=== PATIENT | female | born 1955 | race Caucasian/White ===

== ENCOUNTER 2017-10-26 07:47 | Day surgery (SDC) | payer MEDICARE, MEDICAID ==
[~2017-10-26] VITALS: Ht 172.7 cm; Wt 86.6 kg
[2017-10-26] MEDS ORDERED: normal saline 1000ml 1,000 ML IV SCH (08:10)
[2017-10-26 09:10] VITALS: BP 151/87
[2017-10-26] MEDS ORDERED: FLUT100D2 INH (09:20)
[2017-10-26] MEDS ORDERED: CALC667T5 PO (09:28)
[2017-10-26] MEDS ORDERED: PANT-47 PO (09:30)
[2017-10-26] MEDS ORDERED: INSU100V5 IJ (09:31)
[2017-10-26] MEDS ORDERED: SEVE800T8 PO (09:33)
[2017-10-26] MEDS ORDERED: LORA10TA61 PO (09:34)
[2017-10-26 09:54] LABS: BASOPHILS % (AUTO) 0.2 % (0-1); EOSINOPHILS # (AUTO) 0.1 X10'3 (0-0.9); EOSINOPHILS % (AUTO) 1.1 % (0-6); HEMOGLOBIN 13.1 g/dl (12.0-16.0); LYMPHOCYTES # (AUTO) 1.5 X10'3 (1.1-4.8); MEAN CORPUSCULAR HEMOGLOBIN 30.8 PG (27.0-31.0); MEAN CORPUSCULAR HGB CONC 34.6 % (33.0-36.5); MEAN CORPUSCULAR VOLUME 88.9 FL (78-98); MEAN PLATELET VOLUME 9.2 FL (7.4-10.4); MONOCYTES # (AUTO) 0.4 X10'3 (0-0.9); MONOCYTES % (AUTO) 5.9 % (2-12); NEUTROPHILS # (AUTO) 4.5 X10'3 (1.8-7.7); NEUTROPHILS % (AUTO) 69.8 % (42-75); PLATELET COUNT 118 X10'3 (140-440); RED BLOOD COUNT 4.27 X10'6 (4.20-5.60); RED CELL DISTRIBUTION WIDTH 15.9 % (11.5-14.5); WHITE BLOOD COUNT 6.4 X10'3 (4.5-11.0)
[2017-10-26] MEDS ORDERED: fentaNYL/PF 50MCG/1 ML 2ML syringe IV PRN (10:00)
[2017-10-26] MEDS ORDERED: LIDOcaine 1%/PF 5ML 10 MG/ML VIAL SQ ONE (10:00)
[2017-10-26] MEDS ORDERED: heparin 1,000 units/ml 10ml inj ICATH ONE (10:00)
[2017-10-26] MEDS ORDERED: midazolam 2 mg/2 ml injection IV PRN (10:00)
[2017-10-26 10:04] LABS: INR 0.9 INR; PROTHROMBIN TIME 9.8 SECONDS (9.0-12.0)
[2017-10-26] MEDS ORDERED: LIDOcaine 1%/PF 5ML 10 MG/ML VIAL ONE (10:22)
[2017-10-26] MEDS ORDERED: heparin 1,000unit/ml 10ml vial 10 ML ONE (10:22)
[2017-10-26 10:46] VITALS: BP 152/88
[2017-10-26 11:00] VITALS: BP 154/89
[2017-10-27] MEDS ORDERED: pneumococcal 23-VAL P-sac vacc 25 mcg/0.5ml vial IMVAC ONE (10:00)
== END 2017-10-26 11:15 | disposition home or self-care (01) ==
LOC: SSTAY O 07:47
PROVIDERS: ATTEND Radiology Vascular & Interventional Radiology
DX: T82.898A Other specified complication of vascular prosthetic devices, implants and grafts, initial encounter (principal); Y83.8 Other surgical procedures as the cause of abnormal reaction of the patient, or of later complication, without mention of misadventure at the time of the procedure; Y92.89 Other specified places as the place of occurrence of the external cause; N18.9 Chronic kidney disease, unspecified; R79.1 Abnormal coagulation profile; Z23 Encounter for immunization; Z88.6 Allergy status to analgesic agent; Z88.5 Allergy status to narcotic agent; Z79.4 Long term (current) use of insulin; Z88.2 Allergy status to sulfonamides; Z79.899 Other long term (current) drug therapy; Z88.8 Allergy status to other drugs, medicaments and biological substances
CPT/HCPCS: 36415; 36581; 77001; 85025; 85610; 90732; A9270; C1750; C1769; J1644; J2001; J7030; A4620